=== PATIENT | female | born 1950 | race Caucasian/White ===

== ENCOUNTER 2016-08-22 12:57 | Inpatient (IN) | payer MEDICARE, OTHER ==
--- NOTE | 2016-08-22 13:40 | ED ---
General Adult HPI - General Chief complaint: Chest Pain Stated complaint: Chest Pain Time Seen by Provider: 08/22/16 13:16 Source: patient Mode of arrival: wheelchair Limitations: no limitations - History of Present Illness Initial comments: Patient is a 66-year-old female with past medical history of hyperlipidemia who presents to the emergency department for evaluation of chest pain and near- syncope. Patient reports that on Monday she had an episode in which she got up from a chair, she felt discomfort in her chest, lightheaded, weakness in her arms and legs. She states she felt as though she was going to pass out. She was able to ambulate to her bed but then became concerned that if she did pass out or was having a heart attack she would not be found. She was able to ambulate back to another part of her house where she called her significant other. Patient reports that the symptoms persisted for a couple of hours and then slowly begin to resolve. Her significant other drove her to the hospital, however she refused come in to be evaluated. So she returned home. Patient reports that Monday she was feeling better, she was able to attend to her house chores including vacuuming home. However upon waking this morning she once again experienced mild discomfort in her chest. Patient reports she is unsure if the pressure or discomfort in her chest is due to exerting herself earlier in the week and doing yardwork, anxiety or if she is having a cardiac issue. The patient was evaluated by her primary care physician who referred her to the emergency department for further workup for possible TIA versus chest pain. - Related Data Home Medications Medication Instructions Recorded Confirmed Aspirin 243 mg PO DAILY PRN 08/22/16 08/22/16 Naproxen Sodium [Aleve] 220 mg PO Q12HR PRN 08/22/16 08/22/16 Allergies Allergy/AdvReac Type Severity Reaction Status Date / Time No Known Allergies Allergy Verified 08/22/16 14:20 Review of Systems ROS Statement: Those systems with pertinent positive or pertinent negative responses have been documented in the HPI. ROS Other: All systems not noted in ROS Statement are negative. Constitutional: Denies: fever, chills ENT: Denies: throat pain Respiratory: Denies: cough, dyspnea, wheezes Cardiovascular: Reports: chest pain. Denies: dyspnea on exertion, syncope Endocrine: Denies: fatigue Gastrointestinal: Denies: nausea, vomiting Neurological: Reports: weakness, numbness, paresthesias. Denies: headache Psychiatric: Reports: anxiety Hematological/Lymphatic: Denies: easy bleeding, easy bruising Past Medical History Past Medical History: No Reported History History of Any Multi-Drug Resistant Organisms: None Reported Past Surgical History: Tonsillectomy Additional Past Surgical History / Comment(s): nasal bone surgery Past Psychological History: No Psychological Hx Reported Smoking Status: Never smoker Past Alcohol Use History: Daily Past Drug Use History: None Reported General Exam Limitations: no limitations General appearance: alert, in no apparent distress, anxious Head exam: Present: atraumatic, normocephalic, normal inspection Eye exam: Present: normal appearance, PERRL, EOMI. Absent: scleral icterus, conjunctival injection, periorbital swelling ENT exam: Present: normal exam, mucous membranes moist Neck exam: Present: normal inspection. Absent: tenderness, meningismus, lymphadenopathy Respiratory exam: Present: normal lung sounds bilaterally. Absent: respiratory distress, wheezes, rales, rhonchi, stridor Cardiovascular Exam: Present: regular rate, normal rhythm, normal heart sounds. Absent: tachycardia, irregular rhythm, systolic murmur, diastolic murmur, rubs , gallop, clicks GI/Abdominal exam: Present: soft, normal bowel sounds. Absent: distended, tenderness, guarding, rebound, rigid Rectal exam: Present: deferred Extremities exam: Present: normal inspection, full ROM, normal capillary refill. Absent: tenderness, pedal edema, joint swelling, calf tenderness Neurological exam: Present: alert, oriented X3, CN II-XII intact Expanded Patient oriented to: Present: person, place, time Speech: Present: fluid speech. Absent: receptive aphasia, expressive aphasia, total aphasia, anomia Cranial nerves: Tongue Deviation: Normal, Facial Sensation: Normal, Facial Palsy with Forehead Movement: Normal, Facial Palsy without Forehead Movement: Normal Cerebellar function: Finger to Nose: Normal Upper motor neuron: Pronator Drift: Normal, Sensory Extinction: Normal Motor strength exam: RUE: 5, LUE: 5, RLE: 5, LLE: 5 Eye Response: (4) open spontaneously Motor Response: (6) obeys commands Verbal Response: (5) oriented Psychiatric exam: Present: normal mood, anxious Skin exam: Present: warm, dry, intact, normal color. Absent: rash, cyanosis, diaphoretic, pallor, mottled Course Vital Signs 08/22/16 08/22/16 08/22/16 13:02 13:40 14:03 Temperature 98.3 F Pulse Rate 81 80 Respiratory 20 18 16 Rate Blood Pressure 176/92 183/69 O2 Sat by Pulse 99 97 Oximetry - Reevaluation(s) Reevaluation #1: Patient reevaluated, resting comfortably in bed. CT head, chest x-ray and resulted labs were discussed with the patient. I advised the patient that per recommendation of her primary care physician she should be admitted to the hospital for further evaluation. 08/22/16 14:33 EKG Findings - EKG Comments: EKG Findings:: EKG at 13:12 - normal sinus rhythm, rate 78, normal intervals, no acute ST elevations or depressions. No evidence of acute ischemia or infarction. Medical Decision Making - Medical Decision Making Patient was seen and evaluated, history was obtained from the patient, her significant other as well as a call from her primary care physician History concerning for possible TIA as well as chest pain NIH - 0, no focal neurologic deficit upon arrival in ER Labs, EKG and chest x-ray were ordered CT head was ordered per request of the patient's PCP Labs with mild elevation of Cl Trop, D-dimer not elevated CT head and CXR with no acute findings Patient care discussed with Dr. Sanders who accepts the patient to the observation unit for chest pain and possible TIA - Lab Data Result diagrams: 08/22/16 13:36 08/22/16 13:36 Lab Results 08/22/16 08/22/16 08/22/16 Range/Units 13:36 13:36 13:36 WBC 7.0 (3.8-10.6) k/uL RBC 4.55 (3.80-5.40) m/uL Hgb 13.7 (11.4-16.0) gm/dL Hct 39.8 (34.0-46.0) % MCV 87.4 (80.0-100.0) fL MCH 30.1 (25.0-35.0) pg MCHC 34.4 (31.0-37.0) g/dL RDW 12.8 (11.5-15.5) % Plt Count 299 (150-450) k/uL Neutrophils % 59 % Lymphocytes % 34 % Monocytes % 3 % Eosinophils % 1 % Basophils % 0 % Neutrophils # 4.1 (1.3-7.7) k/uL Lymphocytes # 2.4 (1.0-4.8) k/uL Monocytes # 0.2 (0-1.0) k/uL Eosinophils # 0.1 (0-0.7) k/uL Basophils # 0.0 (0-0.2) k/uL PT (9.0-12.0) sec INR (<1.1) APTT (22.0-30.0) sec D-Dimer (<0.60) mg/L FEU Sodium 142 (137-145) mmol/L Potassium 4.9 (3.5-5.1) mmol/L Chloride 110 H (98-107) mmol/L Carbon Dioxide 23 (22-30) mmol/L Anion Gap 9 mmol/L BUN 14 (7-17) mg/dL Creatinine 0.64 (0.52-1.04) mg/dL Est GFR (MDRD) Af Amer >60 (>60 ml/min/1.73 sqM) Est GFR (MDRD) Non-Af >60 (>60 ml/min/1.73 sqM) Glucose 91 (74-99) mg/dL Calcium 9.5 (8.4-10.2) mg/dL Troponin I (0.000-0.034) ng/mL NT-Pro-B Natriuret Pep 297 pg/mL 08/22/16 08/22/16 Range/Units 13:36 13:36 WBC (3.8-10.6) k/uL RBC (3.80-5.40) m/uL Hgb (11.4-16.0) gm/dL Hct (34.0-46.0) % MCV (80.0-100.0) fL MCH (25.0-35.0) pg MCHC (31.0-37.0) g/dL RDW (11.5-15.5) % Plt Count (150-450) k/uL Neutrophils % % Lymphocytes % % Monocytes % % Eosinophils % % Basophils % % Neutrophils # (1.3-7.7) k/uL Lymphocytes # (1.0-4.8) k/uL Monocytes # (0-1.0) k/uL Eosinophils # (0-0.7) k/uL Basophils # (0-0.2) k/uL PT 10.2 (9.0-12.0) sec INR 1.0 (<1.1) APTT 24.1 (22.0-30.0) sec D-Dimer 0.38 (<0.60) mg/L FEU Sodium (137-145) mmol/L Potassium (3.5-5.1) mmol/L Chloride (98-107) mmol/L Carbon Dioxide (22-30) mmol/L Anion Gap mmol/L BUN (7-17) mg/dL Creatinine (0.52-1.04) mg/dL Est GFR (MDRD) Af Amer (>60 ml/min/1.73 sqM) Est GFR (MDRD) Non-Af (>60 ml/min/1.73 sqM) Glucose (74-99) mg/dL Calcium (8.4-10.2) mg/dL Troponin I <0.012 (0.000-0.034) ng/mL NT-Pro-B Natriuret Pep pg/mL Disposition Clinical Impression: Chest pain, TIA (transient ischemic attack) Disposition: ADMITTED IP TO THIS HOSP Referrals: Cyndi Sanchez MD [Primary Care Provider] - 1-2 days
[2016-08-22 13:52] LABS: Basophils % (A) 0 %; CH 29.4; CHCM 33.8; Eosinophils # (A) 0.1 k/uL (0-0.7); Eosinophils % (A) 1 %; HCT 39.8 % (34.0-46.0); HGB 13.7 gm/dL (11.4-16.0); Luc # (Auto) 0.17; Luc % (Auto) 2; Lymphocytes # (A) 2.4 k/uL (1.0-4.8); Lymphocytes % (A) 34 %; MCH 30.1 pg (25.0-35.0); MCHC 34.4 g/dL (31.0-37.0); MCV 87.4 fL (80.0-100.0); Mean Platelet Volume 6.6; Monocytes # (A) 0.2 k/uL (0-1.0); Monocytes % (A) 3 %; Neutrophils # (A) 4.1 k/uL (1.3-7.7); Neutrophils % (A) 59 %; RBC 4.55 m/uL (3.80-5.40); RDW 12.8 % (11.5-15.5)
[2016-08-22 14:00] LABS: Anion Gap 9 mmol/L; Blood Urea Nitrogen 14 mg/dL (7-17); Calcium 9.5 mg/dL (8.4-10.2); Carbon Dioxide 23 mmol/L (22-30); Chloride 110 mmol/L (98-107); Glucose 91 mg/dL (74-99); Non-African American GFR(MDRD) >60 (>60 ml/min/1.73 sqM); Partial Thromboplastin Time 24.1 sec (22.0-30.0); Prothrombin Time 10.2 sec (9.0-12.0); Sodium 142 mmol/L (137-145)
[2016-08-22 14:09] LABS: Potassium 4.9 mmol/L (3.5-5.1)
--- NOTE | 2016-08-22 14:10 | CT ---
EXAMINATION TYPE: CT brain wo con DATE OF EXAM: 08/22/2016 HISTORY: Episode of weakness and visual disturbance on 08/20/[address] DLP: 1153 mGycm. Automated Exposure Control for Dose Reduction was Utilized. TECHNIQUE: CT scan of the head is performed without contrast. COMPARISON: None. FINDINGS: There is no acute intracranial hemorrhage or midline shift identified. Ventricles and sul ci are within normal limits in size for patient's age. There is low-attenuation in the periventricul ar white matter consistent likely on basis of product of chronic small vessel ischemic change in elizabeth ent of this age. The globes are intact and the visualized sinuses are clear. IMPRESSION: No acute intracranial hemorrhage or midline shift. There is mild chronic small vessel i schemic change noted.
--- NOTE | 2016-08-22 14:13 | XR ---
EXAMINATION TYPE: XR chest 2V DATE OF EXAM: 08/22/2016 COMPARISON: None HISTORY: 66-year-old female with pain TECHNIQUE: Frontal and lateral views FINDINGS: Heart is normal size. Mild elongation of the thoracic aorta. Mild interstitial prominence has a chron ic appearance. Pulmonary vasculature within normal limits. Some strandy atelectasis in the lower lung s. No consolidation or pleural effusion. IMPRESSION: No acute cardiopulmonary process.
[2016-08-22] MEDS ORDERED: ASPIRIN 81 MG CHEW PO STA (14:40)
[2016-08-22] MEDS ORDERED: NALOXONE 0.4 MG/ML 1 ML VIAL IV PRN (14:50)
[2016-08-22] MEDS ORDERED: LORazepam 2 MG/ML SYRINGE IV PRN ×2 (16:04)
[2016-08-22] MEDS ORDERED: THIAMINE 100 MG/ML 2 ML VIAL IM STA (16:04)
[2016-08-22] MEDS ORDERED: NAPROXEN 250 MG TAB PO PRN (16:08)
--- NOTE | 2016-08-22 16:25 | US ---
EXAMINATION TYPE: US carotid duplex BILAT DATE OF EXAM: 08/22/2016 COMPARISON: NONE CLINICAL HISTORY: Stenosis per order. Chest pain EXAM MEASUREMENTS: RIGHT: Peak Systolic Velocity (PSV) cm/sec ----- Right CCA: 67.7 ----- Right ICA: 105.3 ----- Right ECA: 83.7 ICA/CCA ratio: 1.6 RIGHT: End Diastole cm/sec ----- Right CCA: 22.3 ----- Right ICA: 46.9 ----- Right ECA: 20.2 LEFT: Peak Systolic Velocity (PSV) cm/sec ----- Left CCA: 85.4 ----- Left ICA: 136.8 ----- Left ECA: 149.1 ICA/CCA ratio: 1.6 LEFT: End Diastole cm/sec ----- Left CCA: 24.8 ----- Left ICA: 57.6 ----- Left ECA: 32.7 VERTEBRALS (direction of flow): Right Vertebral: Antegrade Left Vertebral: Antegrade Bilateral intimal thickening, minimal plaque bilateral bulb, elevated velocities: left distal ICA and left mid ECA, no significant stenosis. Right thyroid: 1.6 x 1.2 x 1.1cm calcified nodule, Isthmus: 1.2 x 0.7 x 1.0cm hypoechoic vascular n odule, Left thyroid/Isthmus: 2.0 x 1.2 x 2.2cm complex vascular nodule. Grayscale images show mild to moderate eccentric plaque at bilateral carotid bulbs slightly more prom inent on the left. Increased peak systolic velocity and left internal/external carotid artery is seen . Increased left end-diastolic velocity is noted. ICA over CCA ratio remains within normal limits. He terogeneous thyroid with possible scattered nodules is noted by technologist. IMPRESSION: 1. Moderate atherosclerotic change bilaterally , left greater than right, significant stenosis on t he left is not excluded. Consider further investigation with CTA or MRA of the neck to better evaluat e. 2. Heterogeneous prominent thyroid suggesting multinodular goiter, clinical correlation advised. Thyr oid ultrasound follow-up can be performed to further evaluate if desired.
--- NOTE | 2016-08-22 16:27 | P.HPIM ---
History of Present Illness H&P Date: 08/22/16 Chief Complaint: Weakness with chest pain and near syncopal episode This is a 66-year-old female, patient of Dr. Malagon. She has a known past medical history of hyperlipidemia, anxiety and daily alcohol use. Patient reports her symptoms started on Monday. She reports having a warmness sensation in her chest after getting up from a chair. Then she felt lightheaded and weakness in both arms and legs. She thought that she was going to pass out. She also reports trying to grab a glass of water with her right hand and felt that the connection between her brain to her hand was not working. She could not's hold onto the glass. Her symptoms lasted for about 3 hours and then began to resolve. She returned reports taking an aspirin at home. She notified her significant other. He was going to bring her to the emergency room however patient was feeling better and refused to go into the hospital. They turned around and went back home. She was doing better attending chores at home on Monday. However then again she felt the chest discomfort and did not feel quite right. Patient does admit to doing yard work and chopping up which her trunk with her . But she does not is any injury to her neck or back. She felt weakness in both her arms and legs. She' s also having fatigue. She became anxious and concerned and came in for further evaluation. Computed tomography scan of the brain showed no acute changes. Did reveal mild chronic small vessel ischemic changes. EKG had shown normal sinus rhythm and first set of troponins were negative. Chest x-ray was negative. Patient has been having hypertension. Blood pressure in the emergency room was 183/69. She reports taking her blood pressures at home and they had been elevated off and on through Monday and into Monday. She reports that she's not on any blood pressure pills at home. And occasionally she had had episodes of high blood pressures and it was more anxiety related. Once the stress in her life was removed blood pressures returned to normal. Cardiology and neurology have been consulted. Review of Systems Please refer to HPI otherwise unremarkable Past Medical History Past Medical History: No Reported History, Hyperlipidemia History of Any Multi-Drug Resistant Organisms: None Reported Past Surgical History: Tonsillectomy Additional Past Surgical History / Comment(s): nasal bone surgery Past Psychological History: No Psychological Hx Reported Smoking Status: Never smoker Past Alcohol Use History: Daily (Patient reports drinking 2-3 alcoholic beverages daily) Past Drug Use History: None Reported Medications and Allergies Home Medications Medication Instructions Recorded Confirmed Type Aspirin 243 mg PO DAILY PRN 08/22/16 08/22/16 History Naproxen Sodium [Aleve] 220 mg PO Q12HR PRN 08/22/16 08/22/16 History Allergies Allergy/AdvReac Type Severity Reaction Status Date / Time No Known Allergies Allergy Verified 08/22/16 14:20 Physical Exam Vitals: Vital Signs Temp Pulse Resp BP Pulse Ox 08/22/16 15:53 98.9 F 93 18 172/83 98 08/22/16 14:03 80 16 183/69 97 08/22/16 13:40 18 08/22/16 13:02 98.3 F 81 20 176/92 99 Intake and Output 08/22/16 08/22/16 08/22/16 06:59 14:59 22:59 Other: Weight 74.843 kg Patient Weight 08/23/16 06:59 Weight 74.843 kg Head normocephalic Neck supple no tenderness with palpation Lungs clear to auscultation bilaterally no wheezing or crackles Heart regular rate and rhythm S1-S2, no rub or gallop Abdomen is soft nontender nondistended positive bowel sounds no hepatosplenomegaly Extremities no edema. Tremors noted in both hands Neuro alert and orientated to 3 no facial droop or slurred speech. Hand kitchen aide equal bilaterally. Lower extremity strength equal bilaterally Back exam no tenderness with palpation of the thoracic or lumbar spine Results CBC & Chem 7: 08/22/16 13:36 08/22/16 13:36 Labs: Abnormal Lab Results - Last 24 Hours (Table) 08/22/16 Range/Units 13:36 Chloride 110 H (98-107) mmol/L Assessment and Plan Plan: 1. Chest pain with near syncopal episode: First troponin negative. EKG showing normal sinus rhythm. Cardiology and neurology have been consulted. Computed tomography scan of the brain shows no acute changes. Carotid and echo have been ordered. Check for orthostatic hypotension 2. Weakness in both arms and legs with an episode of specific weakness in the right arm. Again computed tomography scan of the brain shows no acute changes. Neurology has been consulted. Check carotid and echo. Start full daily aspirin. 3. Hypertension with episodes of accelerated hypertension possibly contribute to patient's symptoms. We'll add lisinopril 10 mg daily 4. History of hyperlipidemia: Check lipid panel. Patient is not on cholesterol medication at home 5. History of generalized anxiety disorder currently not on any medications 6. History of daily alcohol use. Patient reports drinking 2-3 alcoholic beverages daily. Add the CIWA protocol with thiamine multivitamin and folic acid. GI prophylaxis Pepcid and DVT prophylaxis subcu heparin Time with Patient: Greater than 30 (Greater than 50% of the total time spent in counseling and coordination of care.I performed an examination of the patient and discussed their management with the physician General Farmer. I have reviewed the Physician General Farmer's notes and agree with the documented findings and plan of care)
[2016-08-22] MEDS: LISINOPRIL 10 MG TAB PO SCH (18:05)
[2016-08-22] MEDS: HEPARIN SODIUM,PORCINE 5,000 UNIT/ML 1 ML VIAL SQ SCH (21:22)
[2016-08-22] MEDS: LORazepam 2 MG/ML SYRINGE IV PRN (21:22)
[2016-08-23 06:40] LABS: Basophils % (A) 0 %; CH 29.5; CHCM 33.4; Eosinophils # (A) 0.2 k/uL (0-0.7); Eosinophils % (A) 3 %; HCT 38.8 % (34.0-46.0); HDW 2.43; HGB 12.9 gm/dL (11.4-16.0); Luc # (Auto) 0.12; Luc % (Auto) 2; Lymphocytes # (A) 2.4 k/uL (1.0-4.8); Lymphocytes % (A) 41 %; MCH 29.5 pg (25.0-35.0); MCHC 33.3 g/dL (31.0-37.0); MCV 88.7 fL (80.0-100.0); Mean Platelet Volume 6.6; Monocytes # (A) 0.2 k/uL (0-1.0); Monocytes % (A) 4 %; Neutrophils # (A) 2.9 k/uL (1.3-7.7); Neutrophils % (A) 50 %; RBC 4.37 m/uL (3.80-5.40); RDW 12.7 % (11.5-15.5); WBC 5.9 k/uL (3.8-10.6); WBC (Perox) 6.31
[2016-08-23 06:57] LABS: ALT 63 U/L (9-52); AST 34 U/L (14-36); Alkaline Phosphatase 80 U/L (38-126); Anion Gap 10 mmol/L; Blood Urea Nitrogen 19 mg/dL (7-17); Calcium 9.4 mg/dL (8.4-10.2); Carbon Dioxide 26 mmol/L (22-30); Chloride 106 mmol/L (98-107); Cholesterol 191 mg/dL (<200); Glucose 91 mg/dL (74-99); HDL Cholesterol 57 mg/dL (40-60); Non-African American GFR(MDRD) >60 (>60 ml/min/1.73 sqM); Potassium 3.8 mmol/L (3.5-5.1); Sodium 142 mmol/L (137-145); Total Bilirubin 0.4 mg/dL (0.2-1.3); Total Protein 6.2 g/dL (6.3-8.2); Triglycerides 115 mg/dL (<150)
[2016-08-23] MEDS: HEPARIN SODIUM,PORCINE 5,000 UNIT/ML 1 ML VIAL SQ SCH ×2 (07:58→20:38)
[2016-08-23] MEDS: ASPIRIN 325 MG TAB PO SCH (07:58)
[2016-08-23] MEDS: LISINOPRIL 10 MG TAB PO SCH (07:58)
[2016-08-23] MEDS: FAMOTIDINE 20 MG TAB PO SCH (07:58)
--- NOTE | 2016-08-23 08:10 | P.CRDCN ---
History of Present Illness Consult date: 08/23/16 Requesting physician: Anna Sanders Consult reason: chest pain Chief complaint: Chest Pain and unsteadiness History of present illness: This is a 66-year-old female with no prior documented history of hypertension, no diabetes, positive hyperlipidemia, she is a nonsmoker, she does drink 2-3 alcoholic beverages per day, she presents to the hospital with symptoms that initially started as a warm sensation in her chest, she states shortly thereafter she became very lightheaded and felt as though everything in the room was spinning around her. She states that she initially thought she may even pass out. Both of her arms became extremely numb and weak. Symptoms lasted for 2-3 hours in duration. Initially she was going to come to the emergency room however because symptoms subsided she stayed home. Patient did take an aspirin after this episode occurred. On Monday she was doing chores at home as usual, and again experienced some chest discomfort, states that her arms and legs were weak and she felt fatigued. Because of these recurrences symptoms she came into the emergency room for further evaluation. Just prior to this episode happening on Monday she states that she had been lifting some heavy logs, her neck was quite sore and she did some neck stretching exercises. Blood pressure on arrival to the emergency room 176/92 heart rate in the 80s, 99% on room air temperature 98.3. CBC normal. D-dimer negative. Potassium 3.8 , BUN 19, creatinine 0.8. Troponin 0.012, BNP 297. Cholesterol 191, LDL 111, HDL 57, triglycerides 1:15. EKG shows a normal sinus rhythm with no acute changes. Repeat EKG performed this morning shows normal sinus rhythm with no acute changes. CAT scan of the brain did not reveal any acute intracranial hemorrhage or midline shift. Carotid Doppler study reveals moderate atherosclerotic changes bilaterally left greater than right. Significant stenosis on the left is not excluded. Heterogeneous prominent thyroid suggesting multinodular goiter is noted. At the time of my examination this morning, patient denies any further symptoms. Past Medical History Past Medical History: No Reported History, Hyperlipidemia Additional Past Medical History / Comment(s): "occ irreg heart beat", shingles 2003, thyroid nodules,broken nose in past-had sx . History of Any Multi-Drug Resistant Organisms: None Reported Past Surgical History: Tonsillectomy Additional Past Surgical History / Comment(s): nasal bone surgery Past Anesthesia/Blood Transfusion Reactions: No Reported Reaction Additional Past Anesthesia/Blood Transfusion Reaction / Comment(s): motion sickness when on a boat. Smoking Status: Never smoker - Past Family History Mother Family Medical History: Dementia Additional Family Medical History / Comment(s): colitis. at age 80 Father Additional Family Medical History / Comment(s): aaa. in senior care at age 93 Medications and Allergies Home Medications Medication Instructions Recorded Confirmed Type Aspirin 243 mg PO DAILY PRN 08/22/16 08/22/16 History Naproxen Sodium [Aleve] 220 mg PO Q12HR PRN 08/22/16 08/22/16 History Allergies Allergy/AdvReac Type Severity Reaction Status Date / Time No Known Allergies Allergy Verified 08/22/16 14:20 Physical Exam Vitals: Vital Signs Temp Pulse Pulse Resp BP BP Pulse Ox 08/23/16 04:00 97.0 F L 83 16 136/73 99 08/23/16 00:00 98.0 F 88 16 116/65 98 08/22/16 20:00 97.7 F 78 18 149/91 98 08/22/16 16:09 91 16 151/88 97 08/22/16 15:53 98.9 F 93 18 172/83 98 08/22/16 14:03 80 16 183/69 97 08/22/16 13:40 18 08/22/16 13:02 98.3 F 81 20 176/92 99 Intake and Output 08/22/16 08/23/16 08/23/16 22:59 06:59 14:59 Intake Total 10 Output Total 200 Balance 10 -200 Intake: IV 10 0.9 10 Output: Urine 200 Other: # Voids 2 1 Weight 69.8 kg PHYSICAL EXAMINATION: HEENT: [Head is atraumatic, normocephalic. Pupils equal, round. Neck is supple. There is no elevated jugular venous pressure.] HEART EXAMINATION: [Heart S1, S2 normal. No murmur or gallop heard.] CHEST EXAMINATION:[ Lungs are clear to auscultation and precussion. No chest wall tenderness is noted on palpation or with deep breathing.] ABDOMEN: [ Soft, nontender. Bowel sounds are heard. No organomegaly noted]. EXTREMITIES:[ 2+ peripheral pulses with no evidence of peripheral edema and no calf tenderness noted]. NEUROLOGIC [patient is awake, alert and oriented -3.] . Results 08/23/16 06:00 08/23/16 06:00 Cardiac Enzymes 08/22/16 08/23/16 Range/Units 13:36 06:00 AST 34 (14-36) U/L Troponin I <0.012 (0.000-0.034) ng/mL Coagulation 08/22/16 Range/Units 13:36 PT 10.2 (9.0-12.0) sec APTT 24.1 (22.0-30.0) sec Lipids 08/23/16 Range/Units 06:00 Triglycerides 115 (<150) mg/dL Cholesterol 191 (<200) mg/dL HDL Cholesterol 57 (40-60) mg/dL CBC 08/22/16 08/23/16 Range/Units 13:36 06:00 WBC 7.0 5.9 (3.8-10.6) k/uL RBC 4.55 4.37 (3.80-5.40) m/uL Hgb 13.7 12.9 (11.4-16.0) gm/dL Hct 39.8 38.8 (34.0-46.0) % Plt Count 299 281 (150-450) k/uL Comprehensive Metabolic Panel 08/22/16 08/23/16 Range/Units 13:36 06:00 Sodium 142 142 (137-145) mmol/L Potassium 4.9 3.8 (3.5-5.1) mmol/L Chloride 110 H 106 (98-107) mmol/L Carbon Dioxide 23 26 (22-30) mmol/L BUN 14 19 H (7-17) mg/dL Creatinine 0.64 0.80 (0.52-1.04) mg/dL Glucose 91 91 (74-99) mg/dL Calcium 9.5 9.4 (8.4-10.2) mg/dL AST 34 (14-36) U/L ALT 63 H (9-52) U/L Alkaline Phosphatase 80 (38-126) U/L Total Protein 6.2 L (6.3-8.2) g/dL Albumin 3.7 (3.5-5.0) g/dL Current Medications Generic Name Dose Route Start Last Admin Trade Name Freq PRN Reason Stop Dose Admin Aspirin 325 mg 08/23/16 09:00 Aspirin PO DAILY [facility] Famotidine 20 mg 08/23/16 09:00 Pepcid PO DAILY [facility] Folic Acid 1 mg 08/23/16 12:00 Folic Acid PO DAILY@1200 ANDREA Heparin Sodium (Porcine) 5,000 unit 08/22/16 21:00 08/22/16 21:22 Heparin SQ 5,000 unit Q12HR ANDREA Administration Lisinopril 10 mg 08/22/16 17:00 08/22/16 18:05 Zestril PO 10 mg DAILY ANDREA Administration Lorazepam 1 mg 08/22/16 16:04 08/22/16 21:22 Ativan IV 1 mg Q2HR PRN Administration CIWA 8 or 9 Lorazepam 1 mg 08/22/16 16:04 Ativan IV Q1HR PRN CIWA 10 to 15 Lorazepam 2 mg 08/22/16 16:04 Ativan IV Q1HR PRN CIWA 16 or higher Multivitamins 1 each 08/23/16 12:00 Theragran PO DAILY@1200 [facility] [place] Naloxone HCl 0.2 mg 08/22/16 14:50 Narcan IV Q2M PRN Opioid Reversal Naproxen 250 mg 08/22/16 16:08 Naprosyn PO Q12HR PRN Pain Thiamine HCl 100 mg 08/23/16 12:00 Vitamin B-1 PO DAILY@1200 [facility] Intake and Output 08/22/16 08/23/16 08/23/16 22:59 06:59 14:59 Intake Total 10 Output Total 200 Balance 10 -200 Intake: IV 10 0.9 10 Output: Urine 200 Other: # Voids 2 1 Weight 69.8 kg 08/23/16 06:00 08/23/16 06:00 EKG Interpretations (text) EKG shows normal sinus rhythm with no acute changes. Assessment and Plan Plan: Assessment and plan #1 chest pain, atypical for acute coronary syndrome. Initial troponin negative. EKG shows normal sinus rhythm with no acute changes. #2 symptoms of lightheadedness and near syncope with associated bilateral arm weakness and numbness, rule out TIA #3 hypertension #4 hyperlipidemia # 5 anxiety Plan We'll obtain an echocardiogram with Doppler study. We will also obtain 2 subsequent troponins. Patient has been initiated on lisinopril for blood pressure. Further recommendations to follow. DNP note has been reviewed, I agree with a documented findings and plan of care. Patient was seen and examined.
[2016-08-23] MEDS ORDERED: REGADENOSON 0.4 MG/5 ML SYRINGE IV ONE (10:22)
[2016-08-23] MEDS ORDERED: AMINOPHYLLINE 500 MG/20 ML VIAL IV PRN (10:22)
[2016-08-23] MEDS ORDERED: amLODIPine 5 MG TAB PO STA (10:33)
--- NOTE | 2016-08-23 10:39 | ECHOF ---
Referral Reason:TIA MEASUREMENTS -------- HEIGHT: 160.0 cm WEIGHT: 69.4 kg BP: RVIDd: 2.9 cm (< 3.3) IVSd: 0.8 cm (0.6 - 1.1) LVIDd: 4.4 cm (3.9 - 5.3) LVPWd: 1.0 cm (0.6 - 1.1) IVSs: 1.0 cm LVIDs: 2.7 cm LVPWs: 1.4 cm LA Diam: 3.4 cm (2.7 - 3.8) LAESV Index (A-L): 32.58 ml/m Ao Diam: 2.8 cm (2.0 - 3.7) AV Cusp: 1.6 cm (1.5 - 2.6) LA Diam: 3.7 cm (2.7 - 3.8) MV EXCURSION: 18.742 mm (> 18.000) MV EF SLOPE: 81 mm/s (70 - 150) EPSS: 0.3 cm MV E Reji: 0.69 m/s MV DecT: 173 ms MV A Reji: 0.72 m/s MV E/A Ratio: 0.95 RAP: 5.00 mmHg RVSP: 14.63 mmHg FINDINGS -------- Sinus rhythm. This was a technically good study. LV size, wall thickness and systolic function are normal, with an EF greater than 55%. The right ventricle is normal in size. LA is moderately dilated 34-39 ml/m2 The right atrial size is normal. The aortic valve is trileaflet, and appears structurally normal. No aortic stenosis or regurgitation. The mitral valve leaflets are mildly thickened. Mild mitral regurgitation is present. Mild tricuspid regurgitation present. There is no evidence of pulmonary hypertension. The right ventricular systolic pressure, as measured by Doppler, is 14.63mmHg. Trace/mild (physiologic) pulmonic regurgitation. The aortic root size is normal. There is no pericardial effusion. CONCLUSIONS -------- 1. Sinus rhythm. 2. The aortic root size is normal. 3. There is no pericardial effusion. 4. LV size, wall thickness and systolic function are normal, with an EF greater than 55%. 5. LA is moderately dilated 34-39 ml/m2 6. The aortic valve is trileaflet, and appears structurally normal. No aortic stenosis or regurgitation. 7. The mitral valve leaflets are mildly thickened. 8. Mild mitral regurgitation is present. 9. Mild tricuspid regurgitation present. 10. There is no evidence of pulmonary hypertension. 11. Trace/mild (physiologic) pulmonic regurgitation. DIE TRIMMER: Mica Wharton RDCS
[2016-08-23] MEDS: MULTIVITAMINS, THERA 1 EACH TAB PO SCH (11:15)
[2016-08-23] MEDS: FOLIC ACID 1 MG TAB PO SCH (11:15)
[2016-08-23] MEDS: ATORVASTATIN 40 MG TAB PO SCH (11:15)
[2016-08-23] MEDS: THIAMINE 100 MG TAB PO SCH (11:16)
--- NOTE | 2016-08-23 12:08 | P.STRESS ---
- Stress Test Note Stress Test Results/Findings: Exam Performed: NM stress lexiscan cardiolite Exam Date: 08/23/16 Height: 5 ft 3 in Weight: 69.8 kg Protocol: rafa scan Stage: N/A Duration of Exercise: N/A Resting Heart Rate: 81 Resting Blood Pressure: 162/84 Maximum Achieved Heart Rate: 127 Maximum Achieved Blood Pressure: 166/85 85% PMHR: 132 100% PMHR: 155 METS: N/A Technologist Comment: Stress Test Results/Findings: Baseline rhythm shows sinus mechanism with normal axis and intervals. Patient received an injection of Lexiscan. EKG monitoring shows no ischemic ST segment changes. Cardiolite was injected per protocol. Impression: 1. Nondiagnostic EKG stress test. 2. Nuclear images will be reported separately.
--- NOTE | 2016-08-23 13:21 | NM ---
EXAMINATION TYPE: NM stress lexiscan cardiolite DATE OF EXAM: 08/23/2016 COMPARISON: NONE HISTORY: Chest pain TECHNIQUE: After the intravenous administration of 10.6 mCi Tc 99m Sestamibi - Cardiolite resting SP ECT images acquired 45 minutes post injection. The patient received 0.4mg Lexiscan, 27.5 mCi Tc 99m Sestamibi - Stress images obtained [address] injection FINDINGS: Review of stress and rest SPECT images demonstrates questionable area of decreased radio pharmaceutic al uptake along the anterior apical left ventricle towards the septum on stress as compared to rest i mages. Gated analysis shows suspected paradoxical wall motion at the apex with an estimated left yashira tricular ejection fraction of 51%. IMPRESSION: Question pharmacologically induced left ventricular myocardial ischemia towards the apex as described , additional findings above
--- NOTE | 2016-08-23 17:23 | P.PN ---
Subjective This is a 66-year-old female, patient of Dr. Malagon. She has a known past medical history of hyperlipidemia, anxiety and daily alcohol use. Patient reports her symptoms started on Monday. She reports having a warmness sensation in her chest after getting up from a chair. Then she felt lightheaded and weakness in both arms and legs. She thought that she was going to pass out. She also reports trying to grab a glass of water with her right hand and felt that the connection between her brain to her hand was not working. She could not's hold onto the glass. Her symptoms lasted for about 3 hours and then began to resolved. EKG had shown normal sinus rhythm and first set of troponins were negative. Chest x-ray was negative. Patient has been having hypertension. Blood pressure in the emergency room was elevated patient was admitted to telemetry floor. She was evaluated by cardiology she underwent a stress test which was positive today. Objective - Vital Signs Vital signs: Vital Signs Temp 98.1 F 08/23/16 16:23 Pulse 83 08/23/16 16:23 Resp 18 08/23/16 16:23 BP 126/74 08/23/16 16:23 Pulse Ox 97 08/23/16 16:23 Intake & Output 08/22/16 08/23/16 08/23/16 18:59 06:59 18:59 Intake Total 10 260 Output Total 350 Balance 10 -90 Weight 74.843 kg 69.8 kg Intake: IV 10 20 0.9 10 20 Oral 240 Output: Urine 350 Other: # Voids 2 1 - Exam HEENT head normocephalic and atraumatic Neck is supple no JVD no goiter no lymphadenopathy Chest is clear to auscultation no crackles no wheezing Cardiac exam reveals regular heart sounds S1 and S2 no gallops no murmurs Abdomen is soft nontender no organomegaly with normal bowel sounds Extremity exam reveals no edema no cyanosis or clubbing - Labs CBC & Chem 7: 08/23/16 06:00 08/23/16 06:00 Labs: Abnormal Lab Results - Last 24 Hours (Table) 08/23/16 Range/Units 06:00 BUN 19 H (7-17) mg/dL ALT 63 H (9-52) U/L Total Protein 6.2 L (6.3-8.2) g/dL LDL Cholesterol, Calc 111 H (0-99) mg/dL Assessment and Plan Plan: 1. Chest pain with near syncopal episode: First troponin negative. EKG showing normal sinus rhythm. Cardiology and neurology have been consulted. Computed tomography scan of the brain shows no acute changes. Carotid and echo have been ordered. Check for orthostatic hypotension. Patient underwent a stress test on 08/23/2016, results are suspicious for apical ischemic changes. Patient will be kept nothing by mouth after midnight to be reevaluated by cardiology in a.m.. 2. Weakness in both arms and legs with an episode of specific weakness in the right arm. Again computed tomography scan of the brain shows no acute changes. Neurology has been consulted. Check carotid and echo. Start full daily aspirin. 3. Hypertension with episodes of accelerated hypertension possibly contribute to patient's symptoms. We'll add lisinopril 10 mg daily 4. History of hyperlipidemia: Check lipid panel. Patient is not on cholesterol medication at home 5. History of generalized anxiety disorder currently not on any medications 6. History of daily alcohol use. Patient reports drinking 2-3 alcoholic beverages daily. Add the CIWA protocol with thiamine multivitamin and folic acid.
[2016-08-23] MEDS: LORazepam 2 MG/ML SYRINGE IV PRN (20:38)
[2016-08-24] MEDS: ASPIRIN 325 MG TAB PO SCH (05:56)
[2016-08-24] MEDS: ATORVASTATIN 40 MG TAB PO SCH ×2 (05:56→11:44)
[2016-08-24] MEDS: FAMOTIDINE 20 MG TAB PO SCH (05:56)
[2016-08-24] MEDS: LISINOPRIL 10 MG TAB PO SCH (05:56)
[2016-08-24 06:29] LABS: Basophils % (A) 0 %; CH 29.5; CHCM 33.7; Eosinophils # (A) 0.2 k/uL (0-0.7); Eosinophils % (A) 2 %; HCT 42.3 % (34.0-46.0); HGB 14.3 gm/dL (11.4-16.0); Luc # (Auto) 0.15; Luc % (Auto) 2; Lymphocytes % (A) 45 %; MCH 29.6 pg (25.0-35.0); MCHC 33.7 g/dL (31.0-37.0); MCV 87.8 fL (80.0-100.0); Mean Platelet Volume 6.5; Monocytes # (A) 0.3 k/uL (0-1.0); Monocytes % (A) 4 %; Neutrophils # (A) 3.1 k/uL (1.3-7.7); Neutrophils % (A) 47 %; RBC 4.82 m/uL (3.80-5.40); RDW 12.6 % (11.5-15.5); WBC 6.6 k/uL (3.8-10.6); WBC (Perox) 6.38
[2016-08-24 06:44] LABS: ALT 57 U/L (9-52); AST 33 U/L (14-36); Alkaline Phosphatase 99 U/L (38-126); Anion Gap 10 mmol/L; Blood Urea Nitrogen 22 mg/dL (7-17); Calcium 9.6 mg/dL (8.4-10.2); Carbon Dioxide 26 mmol/L (22-30); Chloride 106 mmol/L (98-107); Glucose 92 mg/dL (74-99); Non-African American GFR(MDRD) >60 (>60 ml/min/1.73 sqM); Potassium 3.9 mmol/L (3.5-5.1); Sodium 142 mmol/L (137-145); Total Bilirubin 0.4 mg/dL (0.2-1.3); Total Protein 7.1 g/dL (6.3-8.2)
[2016-08-24] MEDS: HEPARIN SODIUM,PORCINE 5,000 UNIT/ML 1 ML VIAL SQ SCH ×2 (10:13→20:42)
[2016-08-24] MEDS ORDERED: ATORVASTATIN 80 MG TAB PO STA (11:14)
[2016-08-24] MEDS ORDERED: ALPRAZolam 0.5 MG TAB PO PRN (11:14)
[2016-08-24] MEDS ORDERED: ALPRAZolam 0.25 MG TAB PO PRN (11:14)
[2016-08-24] MEDS ORDERED: NITROGLYCERIN SL TABS 0.4 MG TAB SUBLINGUAL PRN (11:14)
[2016-08-24] MEDS ORDERED: ASPIRIN 325 MG TAB PO STA (11:14)
[2016-08-24] MEDS ORDERED: SODIUM CHLORIDE 0.9% 1,000 ML in EMPTY BAG 1 BAG IV ONE (11:14)
[2016-08-24] MEDS ORDERED: ATORVASTATIN 40 MG TAB PO STA (11:19)
[2016-08-24] MEDS: THIAMINE 100 MG TAB PO SCH (11:23)
[2016-08-24] MEDS: MULTIVITAMINS, THERA 1 EACH TAB PO SCH (11:23)
[2016-08-24] MEDS: FOLIC ACID 1 MG TAB PO SCH (11:23)
[2016-08-24] MEDS ORDERED: VERAPAMIL 2.5 MG/ML 2 ML AMP ONE (13:27)
[2016-08-24] MEDS ORDERED: LIDOCAINE 2% INJ 20 MG/ML (20 ML MDV) ONE (13:27)
[2016-08-24] MEDS ORDERED: diphenhydrAMINE 50 MG/ML 1 ML VIAL ONE (13:46)
[2016-08-24] MEDS ORDERED: MIDAZOLAM 2 MG/2 ML VIAL ONE (13:46)
[2016-08-24] MEDS ORDERED: HEPARIN SODIUM 1,000 UN/ML (10ML VL) ONE (13:50)
[2016-08-24] MEDS ORDERED: diphenhydrAMINE 50 MG/ML 1 ML VIAL IVP ONE (13:52)
[2016-08-24] MEDS ORDERED: MIDAZOLAM 2 MG/2 ML VIAL IVP ONE (13:52)
[2016-08-24] MEDS ORDERED: IV FLUID CONTINUATION 800 ML IV ONE (13:53)
[2016-08-24] MEDS ORDERED: LIDOCAINE 2% INJ 20 MG/ML SQ ONE (14:06)
[2016-08-24] MEDS: VERAPAMIL SYRINGE (5 MG/10 ML) INTRAARTER ONE ×2 (14:09→14:33)
[2016-08-24] MEDS ORDERED: HEPARIN SODIUM 1,000 UN/ML (10ML VL) IV ONE (14:10)
--- NOTE | 2016-08-24 14:28 | P.PN ---
Subjective This is a 66-year-old female with no prior documented history of hypertension, no diabetes, positive hyperlipidemia, she is a nonsmoker, she does drink 2-3 alcoholic beverages per day, she presents to the hospital with symptoms that initially started as a warm sensation in her chest, she states shortly thereafter she became very lightheaded and felt as though everything in the room was spinning around her. She states that she initially thought she may even pass out. Both of her arms became extremely numb and weak. Symptoms lasted for 2-3 hours in duration. Initially she was going to come to the emergency room however because symptoms subsided she stayed home. Patient did take an aspirin after this episode occurred. On Monday she was doing chores at home as usual, and again experienced some chest discomfort, states that her arms and legs were weak and she felt fatigued. Because of these recurrences symptoms she came into the emergency room for further evaluation. Just prior to this episode happening on Monday she states that she had been lifting some heavy logs, her neck was quite sore and she did some neck stretching exercises. Blood pressure on arrival to the emergency room 176/92 heart rate in the 80s, 99% on room air temperature 98.3. CBC normal. D-dimer negative. Potassium 3.8 , BUN 19, creatinine 0.8. Troponin 0.012, BNP 297. Cholesterol 191, LDL 111, HDL 57, triglycerides 1:15. EKG shows a normal sinus rhythm with no acute changes. Repeat EKG performed this morning shows normal sinus rhythm with no acute changes. CAT scan of the brain did not reveal any acute intracranial hemorrhage or midline shift. Carotid Doppler study reveals moderate atherosclerotic changes bilaterally left greater than right. Significant stenosis on the left is not excluded. Heterogeneous prominent thyroid suggesting multinodular goiter is noted. At the time of my examination this morning, patient denies any further symptoms. 08/24/2016 She underwent a Lexiscan stress test which revealed questionable pharmacologically induced left ventricular myocardial ischemia towards the apex. For this reason patient was advised to undergo cardiac catheterization. The risks and the benefits were explained to the patient and her significant other in details. This will be performed today by Dr. Michael Arroyo. Objective - Vital Signs Vital signs: Vital Signs Temp 97.1 F L 08/24/16 07:44 Pulse 95 08/24/16 11:52 Resp 18 08/24/16 11:52 BP 134/69 08/24/16 11:52 Pulse Ox 97 08/24/16 11:52 Intake & Output 08/23/16 08/24/16 08/24/16 18:59 06:59 18:59 Intake Total 500 10 Output Total 800 Balance -300 10 Weight 69 kg Intake: IV 20 10 0.9 20 10 Oral 480 Output: Urine 800 Other: # Voids 3 2 - Exam PHYSICAL EXAMINATION: HEENT: Head is atraumatic, normocephalic. Pupils equal, round. Neck is supple. There is no elevated jugular venous pressure. HEART EXAMINATION: Heart S1, S2 normal. No murmur or gallop heard. CHEST EXAMINATION: Lungs are clear to auscultation and precussion. No chest wall tenderness is noted on palpation or with deep breathing. ABDOMEN: Soft, nontender. Bowel sounds are heard. No organomegaly noted. EXTREMITIES: 2+ peripheral pulses with no evidence of peripheral edema and no calf tenderness noted. NEUROLOGIC patient is awake, alert and oriented -3. . - Labs CBC & Chem 7: 08/24/16 05:56 08/24/16 05:56 Labs: Abnormal Lab Results - Last 24 Hours (Table) 08/24/16 Range/Units 05:56 BUN 22 H (7-17) mg/dL ALT 57 H (9-52) U/L Assessment and Plan Plan: Assessment and plan #1 chest pain, atypical for acute coronary syndrome. Lexiscan raises suspicion of possible reversible ischemia near the apex.. #2 symptoms of lightheadedness and near syncope with associated bilateral arm weakness and numbness, rule out TIA #3 hypertension #4 hyperlipidemia # 5 anxiety Plan patient has been advised to undergo cardiac catheterization to rule out any underlying coronary artery disease. The risks and benefits of explained to the patient in detail , this will be performed today by Dr. Michael Arroyo. DNP note has been reviewed, I agree with a documented findings and plan of care. Patient was seen and examined.
[2016-08-24] MEDS ORDERED: RX INFO: IV CONTRAST WAS GIVEN 1 EACH MISC MISCELLANE PRN (14:39)
[2016-08-24] MEDS ORDERED: IOHEXOL 350 MG/ML 100 ML BOTTLE INJ ONE (14:42)
[2016-08-24] MEDS: SODIUM CHLORIDE 0.9% 1,000 ML IV SCH (15:18)
--- NOTE | 2016-08-24 16:47 | P.PN ---
Subjective This is a 66-year-old female, patient of Dr. Malagon. She has a known past medical history of hyperlipidemia, anxiety and daily alcohol use. Patient reports her symptoms started on Monday. She reports having a warmness sensation in her chest after getting up from a chair. Then she felt lightheaded and weakness in both arms and legs. She thought that she was going to pass out. She also reports trying to grab a glass of water with her right hand and felt that the connection between her brain to her hand was not working. She could not's hold onto the glass. Her symptoms lasted for about 3 hours and then began to resolved. EKG had shown normal sinus rhythm and first set of troponins were negative. Chest x-ray was negative. Patient has been having hypertension. Blood pressure in the emergency room was elevated patient was admitted to telemetry floor. She was evaluated by cardiology she underwent a stress test which was positive today. Objective - Vital Signs Vital signs: Vital Signs Temp 97.6 F 08/24/16 14:55 Pulse 73 08/24/16 15:55 Resp 18 08/24/16 14:55 BP 122/74 08/24/16 15:55 Pulse Ox 97 08/24/16 14:55 Intake & Output 08/23/16 08/24/16 08/24/16 18:59 06:59 18:59 Intake Total 500 10 200 Output Total 800 Balance -300 10 200 Weight 69 kg Intake: IV 20 10 200 0.9 20 10 Oral 480 Output: Urine 800 Other: # Voids 3 2 - Exam HEENT head normocephalic and atraumatic Neck is supple no JVD no goiter no lymphadenopathy Chest is clear to auscultation no crackles no wheezing Cardiac exam reveals regular heart sounds S1 and S2 no gallops no murmurs Abdomen is soft nontender no organomegaly with normal bowel sounds Extremity exam reveals no edema no cyanosis or clubbing - Labs CBC & Chem 7: 08/24/16 05:56 08/24/16 05:56 Labs: Abnormal Lab Results - Last 24 Hours (Table) 08/24/16 Range/Units 05:56 BUN 22 H (7-17) mg/dL ALT 57 H (9-52) U/L Assessment and Plan Plan: 1. Chest pain with near syncopal episode: First troponin negative. EKG showing normal sinus rhythm. Cardiology and neurology have been consulted. Computed tomography scan of the brain shows no acute changes. Carotid and echo have been ordered. Check for orthostatic hypotension. Patient underwent a stress test on 08/23/2016, results are suspicious for apical ischemic changes. Patient underwent cardiac cath on 08/24/2016 which revealed no significant coronary disease, recommendation by Dr Michael Arroyo to monitor patient till 08/25/2016 if stable she can be discharged home. 2. Weakness in both arms and legs with an episode of specific weakness in the right arm. Again computed tomography scan of the brain shows no acute changes. Neurology has been consulted. Check carotid and echo. Start full daily aspirin. 3. Hypertension with episodes of accelerated hypertension possibly contribute to patient's symptoms. We'll add lisinopril 10 mg daily 4. History of hyperlipidemia: Check lipid panel. Patient is not on cholesterol medication at home 5. History of generalized anxiety disorder currently not on any medications 6. History of daily alcohol use. Patient reports drinking 2-3 alcoholic beverages daily. Add the CIWA protocol with thiamine multivitamin and folic acid.
[2016-08-24] MEDS: LORazepam 2 MG/ML SYRINGE IV PRN (20:34)
[2016-08-25 00:28] VITALS: RESP 16
[2016-08-25] MEDS: SODIUM CHLORIDE 0.9% 1,000 ML IV SCH (05:36)
[2016-08-25 06:56] LABS: Basophils % (A) 0 %; CH 29.5; CHCM 34.4; Eosinophils # (A) 0.1 k/uL (0-0.7); Eosinophils % (A) 2 %; HCT 36.5 % (34.0-46.0); HDW 2.54; HGB 12.9 gm/dL (11.4-16.0); Luc # (Auto) 0.14; Luc % (Auto) 2; Lymphocytes # (A) 2.7 k/uL (1.0-4.8); Lymphocytes % (A) 43 %; MCH 30.6 pg (25.0-35.0); MCHC 35.5 g/dL (31.0-37.0); MCV 86.4 fL (80.0-100.0); Mean Platelet Volume 7.1; Monocytes # (A) 0.3 k/uL (0-1.0); Monocytes % (A) 4 %; Neutrophils # (A) 3.1 k/uL (1.3-7.7); Neutrophils % (A) 49 %; RBC 4.22 m/uL (3.80-5.40); RDW 12.9 % (11.5-15.5); WBC 6.4 k/uL (3.8-10.6); WBC (Perox) 6.27
[2016-08-25 07:10] LABS: ALT 44 U/L (9-52); AST 28 U/L (14-36); Alkaline Phosphatase 79 U/L (38-126); Anion Gap 8 mmol/L; Blood Urea Nitrogen 18 mg/dL (7-17); Carbon Dioxide 25 mmol/L (22-30); Chloride 110 mmol/L (98-107); Glucose 94 mg/dL (74-99); Non-African American GFR(MDRD) >60 (>60 ml/min/1.73 sqM); Potassium 4.1 mmol/L (3.5-5.1); Sodium 143 mmol/L (137-145); Total Bilirubin 0.6 mg/dL (0.2-1.3); Total Protein 6.3 g/dL (6.3-8.2)
[2016-08-25] MEDS: HEPARIN SODIUM,PORCINE 5,000 UNIT/ML 1 ML VIAL SQ SCH (07:52)
[2016-08-25] MEDS: FAMOTIDINE 20 MG TAB PO SCH (08:02)
[2016-08-25] MEDS: LISINOPRIL 10 MG TAB PO SCH (08:02)
[2016-08-25] MEDS: ATORVASTATIN 40 MG TAB PO SCH (08:02)
[2016-08-25 08:09] VITALS: BP 121/70; PULSE 93; TEMP 97.6
--- NOTE | 2016-08-25 08:19 | PCN ---
DATE OF SERVICE: 08/24/2016 PROCEDURE: Left heart catheterization and coronary angiography. PERFORMED BY: Dr. Angel Arroyo. CLINICAL INFORMATION: Mrs. Thea Peck is a 66 year old lady admitted to the hospital with an episode of chest pain and hypertension. She was also a question of TIA which was resolved. She then had a stress Cardiolite scan which revealed evidence of ischemia in the anterior wall. Because of her symptoms of chest pain and abnormal stress test, she was advised cardiac catheterization. Risks, benefits, options and rationale were carefully explained to the patient and her . They understood all details and wished to proceed with the procedure. PROCEDURE NOTE: Under local anesthesia and strict aseptic precautions, a 6 [place] introducer was placed in the right radial artery. Using an Ultima 1 catheter, I performed selective coronary angiography of the left coronary system. While attempting to check the right coronary artery, the catheter went into a small independent separate conus branch and with the conus branch injection, the patient developed spasm of this vessel and there was transient ST elevation with chest pain which resolved within five minutes. Left coronary system was injected with Ultima 1 catheter and I used a 5 [place] JR4 catheter for the right coronary artery. The right coronary artery was a dominant vessel, had a separate origin other than the conus branch. I then checked LV pressures with the pigtail catheter but did not perform LV gram. The sheath was taken out and TR band applied as per protocol. The patient was sent to the room in stable condition. Saturation of the fingers in the right hand was 98%. Moderate Conscious sedation was provided for 37 min. CARDIAC CATHETERIZATION FINDINGS: The left ventricular end diastolic pressure was 16 mmHg without any gradient across the aortic valve. CORONARY ANGIOGRAPHIC FINDINGS: RIGHT CORONARY ARTERY: Technically a dominant vessel, free of significant disease, bifurcates into a larger PDA, smaller PLV, supplies a sizable amount of myocardium. There is a separate conus branch that was also injected. This conus branch had a transient spasm causing transient ST elevation in the inferior leads. The conus branch is very tortuous, small in caliber, free of significant disease, seems to come independently just above the RCA. LEFT MAIN CORONARY ARTERY: Short patent disease free vessel that bifurcates into LAD and circumflex. LEFT ANTERIOR DESCENDING CORONARY ARTERY: Good caliber vessel gives off septal and diagonal branches, runs along the anterior wall. In the mid portion, the caliber of the LAD decreases as it runs all the way to the apex but the last one third of the vessel is small in caliber and distribution and appears to be a natural tapering of the vessel. No significant disease is noted in the LAD system. LEFT POSTERIOR CIRCUMFLEX CORONARY ARTERY: Non-dominant vessel gives off two obtuse marginal branches, has minor irregularities. No significant disease is noted. LEFT VENTRICULOGRAM: This was not performed. FINAL IMPRESSION: This patient has a right dominant system, a separate conus branch that went into spasm during injection which then resolved completely. There was no significant disease in the left system or in the RCA. RCA is a dominant vessel. Filling pressures are acceptable. RECOMMENDATIONS: I am recommending continued medical therapy with good blood pressure control and also addition of a statin agent. The patient will be on Norvasc which will also help spasm situation. Discussed the findings in detail with the patient and her . She will be discharged tomorrow. JEAN CARLOS
--- NOTE | 2016-08-25 08:31 | MISC ---
Dear Dr. Sanchez: Thank you for the opportunity to participate in the care of Mrs. Peck. I am pleased to report to you that she does not have any significant obstructive CAD. She has some tendency to spasm. Therefore, I asking her to be on a combination of Norvasc and Lisinopril and avoid beta blockers for now. She will be discharged tomorrow if she remains stable. Thank you for your referral. Please call for questions. With kind personal regards, Sincerely, JEAN CARLOS
--- NOTE | 2016-08-25 08:33 | PCN ---
ADDENDUM: The patient received moderate conscious sedation for a total duration of 37 minutes. MTDD
[2016-08-25] MEDS ORDERED: ASPIRIN 81 MG CHEW PO SCH (09:00)
--- NOTE | 2016-08-25 10:29 | P.DS ---
Providers Date of admission: 08/25/16 08:34 Expected date of discharge: 08/25/16 Attending physician: Anna Sanders Consults: 08/22/16 16:05 Consult Physician Routine Consulting Provider: Cyn Jarquin Consult Reason/Comments: possible TIA Do you want consulting provider notified?: Yes 08/22/16 16:07 Consult Physician Routine Consulting Provider: Naima Zaidi Consult Reason/Comments: chest pain, near syncope Do you want consulting provider notified?: Yes Primary care physician: Cyndi Sanchez Hospital Course: Discharge diagnosis 1. Chest pain with near syncopal episode: Troponins negative 3 sets. EKG showing normal sinus rhythm. Cardiology and neurology have been consulted. Computed tomography scan of the brain shows no acute changes. Echo shows an EF of 55% with no significant valvular abnormality. Patient underwent a stress test on 08/23/2016, results are suspicious for apical ischemic changes. Patient underwent cardiac cath on 08/24/2016 which revealed no significant coronary disease, did have evidence of cardiac spasms recommendation by Dr Michael Arroyo to monitor patient till 08/25/2016 if stable she can be discharged home. Radiology added Norvasc 5 mg daily for the cardiac spasms 2. Possible TIA. Weakness in both arms and legs with an episode of specific weakness in the right arm. Symptoms resolved. Again computed tomography scan of the brain shows no acute changes. Neurology was consulted. Patient did not get seen by neurology. However her symptoms are resolved. We will continue aspirin 81 mg daily. 3. Hypertension with episodes of accelerated hypertension possibly contribute to patient's symptoms. We'll add lisinopril 10 mg daily 4. History of hyperlipidemia: Patient is not on cholesterol medication at home. Initially cardiology did start statin for patient. However her cholesterol level is 191 LDL 111 and HDL 57. Just recommend following a heart healthy diet. Patient does not require statin at this time. 5. History of generalized anxiety disorder currently not on any medications 6. History of daily alcohol use. Patient reports drinking 2-3 alcoholic beverages daily. Patient did not require any Ativan. And she had refused a multivitamin and thiamine and folic acid. Hospital course This is a 66-year-old female, patient of Dr. Malagon. She has a known past medical history of hyperlipidemia, anxiety and daily alcohol use. Patient reports her symptoms started on Monday. She reports having a warmness sensation in her chest after getting up from a chair. Then she felt lightheaded and weakness in both arms and legs. She thought that she was going to pass out. She also reports trying to grab a glass of water with her right hand and felt that the connection between her brain to her hand was not working. She could not's hold onto the glass. Her symptoms lasted for about 3 hours and then began to resolve. She returned reports taking an aspirin at home. She notified her significant other. He was going to bring her to the emergency room however patient was feeling better and refused to go into the hospital. They turned around and went back home. She was doing better attending chores at home on Monday. However then again she felt the chest discomfort and did not feel quite right. Patient does admit to doing yard work and chopping up which her trunk with her . But she does not is any injury to her neck or back. She felt weakness in both her arms and legs. She' s also having fatigue. She became anxious and concerned and came in for further evaluation. Computed tomography scan of the brain showed no acute changes. Did reveal mild chronic small vessel ischemic changes. EKG had shown normal sinus rhythm and first set of troponins were negative. Chest x-ray was negative. Patient has been having hypertension. Blood pressure in the emergency room was 183/69. She reports taking her blood pressures at home and they had been elevated off and on through Monday and into Monday. She reports that she's not on any blood pressure pills at home. And occasionally she had had episodes of high blood pressures and it was more anxiety related. Once the stress in her life was removed blood pressures returned to normal. Cardiology and neurology have been consulted. Patient had stress test which was suspicious for apical ischemic changes. She therefore underwent heart catheterization on 08/24/[address] YUNG Arroyo. He there is no evidence of any significant coronary artery disease. It did show some cardiac spasms. Likely patient's symptoms were related to cardiac spasms. Cardiac is recommending Norvasc 5 mg daily. Also note that patient did have a carotid ultrasound completed showing moderate atherosclerotic changes bilaterally left later than right. Significant stenosis on the left is not excluded. Consider further investigation with CTA or MRA of the neck to better evaluate. Would recommend further evaluation of these tests to be completed outpatient. Also noted that there was heterogenous prominent thyroid suggesting multinodular goiter on carotid ultrasound. Would recommend a thyroid ultrasound to be completed outpatient. Thyroid studies within normal range. Patient Condition at Discharge: Stable Plan - Discharge Summary New Discharge Prescriptions: New amLODIPine [Norvasc] 5 mg PO DAILY #30 tab Lisinopril [Zestril] 10 mg PO DAILY #30 tab Continue Naproxen Sodium [Aleve] 220 mg PO Q12HR PRN PRN Reason: Pain Aspirin 243 mg PO DAILY PRN PRN Reason: Pain Discharge Medication List Aspirin 243 mg PO DAILY PRN 08/22/16 [History] Naproxen Sodium [Aleve] 220 mg PO Q12HR PRN 08/22/16 [History] Lisinopril [Zestril] 10 mg PO DAILY #30 tab 08/25/16 [Rx] amLODIPine [Norvasc] 5 mg PO DAILY #30 tab 08/25/16 [Rx] Follow up Appointment(s)/Referral(s): You Arroyo MD [STAFF PHYSICIAN] - 08/26/16 5:00 pm Cyndi Sanchez MD [Primary Care Provider] - 1 Week Activity/Diet/Wound Care/Special Instructions: Diet: cardiac Activity: as tolerated Discharge Disposition: HOME SELF-CARE
--- NOTE | 2016-08-25 11:31 | P.PN ---
Subjective This is a 66-year-old female with no prior documented history of hypertension, no diabetes, positive hyperlipidemia, she is a nonsmoker, she does drink 2-3 alcoholic beverages per day, she presents to the hospital with symptoms that initially started as a warm sensation in her chest, she states shortly thereafter she became very lightheaded and felt as though everything in the room was spinning around her. She states that she initially thought she may even pass out. Both of her arms became extremely numb and weak. Symptoms lasted for 2-3 hours in duration. Initially she was going to come to the emergency room however because symptoms subsided she stayed home. Patient did take an aspirin after this episode occurred. On Monday she was doing chores at home as usual, and again experienced some chest discomfort, states that her arms and legs were weak and she felt fatigued. Because of these recurrences symptoms she came into the emergency room for further evaluation. Just prior to this episode happening on Monday she states that she had been lifting some heavy logs, her neck was quite sore and she did some neck stretching exercises. Blood pressure on arrival to the emergency room 176/92 heart rate in the 80s, 99% on room air temperature 98.3. CBC normal. D-dimer negative. Potassium 3.8 , BUN 19, creatinine 0.8. Troponin 0.012, BNP 297. Cholesterol 191, LDL 111, HDL 57, triglycerides 1:15. EKG shows a normal sinus rhythm with no acute changes. Repeat EKG performed this morning shows normal sinus rhythm with no acute changes. CAT scan of the brain did not reveal any acute intracranial hemorrhage or midline shift. Carotid Doppler study reveals moderate atherosclerotic changes bilaterally left greater than right. Significant stenosis on the left is not excluded. Heterogeneous prominent thyroid suggesting multinodular goiter is noted. At the time of my examination this morning, patient denies any further symptoms. 08/24/2016 She underwent a Lexiscan stress test which revealed questionable pharmacologically induced left ventricular myocardial ischemia towards the apex. For this reason patient was advised to undergo cardiac catheterization. The risks and the benefits were explained to the patient and her significant other in details. This will be performed today by Dr. Michael Arroyo. 08/25/2016 Patient underwent a cardiac catheterization yesterday which revealed coronary vasospasm. She was initiated on calcium channel landen. Blood pressure this morning much improved. Denies any chest pain, plans are for discharge home today. She will have a follow-up appointment with Dr. Michael Arroyo in the office post discharge. Objective - Vital Signs Vital signs: Vital Signs Temp 97.6 F 08/25/16 08:00 Pulse 93 08/25/16 08:00 Resp 16 08/25/16 08:00 BP 121/70 08/25/16 08:00 Pulse Ox 97 08/25/16 08:00 Intake & Output 08/24/16 08/25/16 08/25/16 18:59 06:59 18:59 Intake Total 440 900 Balance 440 900 Weight 69 kg Intake: IV 200 900 0.9 900 Oral 240 Other: Voiding Method Toilet # Voids 0 - Exam PHYSICAL EXAMINATION: HEENT: Head is atraumatic, normocephalic. Pupils equal, round. Neck is supple. There is no elevated jugular venous pressure. HEART EXAMINATION: Heart S1, S2 normal. No murmur or gallop heard. CHEST EXAMINATION: Lungs are clear to auscultation and precussion. No chest wall tenderness is noted on palpation or with deep breathing. ABDOMEN: Soft, nontender. Bowel sounds are heard. No organomegaly noted. EXTREMITIES: 2+ peripheral pulses with no evidence of peripheral edema and no calf tenderness noted. Right radial site clean and dry, good distal pulse. NEUROLOGIC patient is awake, alert and oriented -3. . - Labs CBC & Chem 7: 08/25/16 06:34 08/25/16 06:34 Labs: Abnormal Lab Results - Last 24 Hours (Table) 08/25/16 Range/Units 06:34 Chloride 110 H (98-107) mmol/L BUN 18 H (7-17) mg/dL Assessment and Plan Plan: Assessment and plan #1 chest pain, atypical for acute coronary syndrome. Lexiscan raises suspicion of possible reversible ischemia near the apex.. #2 symptoms of lightheadedness and near syncope with associated bilateral arm weakness and numbness, rule out TIA #3 hypertension #4 hyperlipidemia # 5 anxiety Plan Patient underwent a cardiac catheterization yesterday which revealed the suspicion of vasospasm in the coronary arteries. She was initiated on calcium channel landen. She will be discharged home today to follow-up with Dr. Michael Arroyo in the office in one week. Patient will be discharged home on Norvasc, and lisinopril along with statin. DNP note has been reviewed, I agree with a documented findings and plan of care. Patient was seen and examined.
== END 2016-08-25 10:54 | disposition home or self-care (01) | DRG 287 ==
LOC: EC 12:57 → 6SEL 14:50 → OBSVTOIN 08-25 08:34
PROVIDERS: ADMIT Internal Medicine; ATTEND Internal Medicine
PROC: HZ2ZZZZ Detoxification Services for Substance Abuse Treatment (ICD-10-PCS; 2016-08-22)
PROC: 4A12XM4 Monitoring of Cardiac Stress, External Approach (ICD-10-PCS; 2016-08-23)
PROC: 3E033HZ Introduction of Radioactive Substance into Peripheral Vein, Percutaneous Approach (ICD-10-PCS; 2016-08-23)
PROC: C22G1ZZ Tomographic (Tomo) Nuclear Medicine Imaging of Myocardium using Technetium 99m (Tc-99m) (ICD-10-PCS; 2016-08-23)
PROC: B2111ZZ Fluoroscopy of Multiple Coronary Arteries using Low Osmolar Contrast (ICD-10-PCS; 2016-08-24)
PROC: B2151ZZ Fluoroscopy of Left Heart using Low Osmolar Contrast (ICD-10-PCS; 2016-08-24)
PROC: 4A023N7 Measurement of Cardiac Sampling and Pressure, Left Heart, Percutaneous Approach (ICD-10-PCS; principal; 2016-08-24 09:15)
DX: I20.1 Angina pectoris with documented spasm (principal); G45.9 Transient cerebral ischemic attack, unspecified; I10 Essential (primary) hypertension; I65.23 Occlusion and stenosis of bilateral carotid arteries; R94.39 Abnormal result of other cardiovascular function study; E78.5 Hyperlipidemia, unspecified; F41.1 Generalized anxiety disorder; E04.2 Nontoxic multinodular goiter; R53.1 Weakness; R53.83 Other fatigue; Z86.19 Personal history of other infectious and parasitic diseases; Z87.81 Personal history of (healed) traumatic fracture; Z91.19 Patient's noncompliance with other medical treatment and regimen; Z91.14 Patient's other noncompliance with medication regimen; Z82.49 Family history of ischemic heart disease and other diseases of the circulatory system; Z79.82 Long term (current) use of aspirin; Z79.1 Long term (current) use of non-steroidal anti-inflammatories (NSAID); Z81.8 Family history of other mental and behavioral disorders; Z72.89 Other problems related to lifestyle
CPT/HCPCS: 36415; 70450; 71020; 78452; 80048; 80053; 80061; 83880; 84439; 84443; 84484; 85025; 85379; 85610; 85730; 93005; 93017; 93306; 93458; 93880; 96374; 99285